=== PATIENT | female | born 1970 | race Caucasian/White ===

== ENCOUNTER 2025-04-02 09:19 | Emergency (ER) | payer OTHER ==
[~2025-04-02] VITALS: Ht 162.6 cm; Wt 82.3 kg
[2025-04-02] MEDS ORDERED: ISOVUE-370 76% 100 ML VIAL As Ordered ONE (09:57)
[2025-04-02] MEDS ORDERED: METO37.5 PO (10:14)
[2025-04-02] MEDS ORDERED: OMEG10002 PO (10:14)
[2025-04-02] MEDS ORDERED: LOSA50TA28 PO (10:14)
[2025-04-02 10:26] LABS: PLATELET COUNT, AUTOMATED 287 10^3/uL (150-450)
[2025-04-02 17:08] VITALS: BP 118/59; TEMP 97.6; O2SAT 96
== END 2025-04-02 17:10 | disposition home or self-care (01) ==
LOC: M ED 09:19 → EDBD 09:19 → M ED 17:10
DX: H81.13 Benign paroxysmal vertigo, bilateral (principal); I10 Essential (primary) hypertension; F10.10 Alcohol abuse, uncomplicated; Z91.048 Other nonmedicinal substance allergy status; Z79.899 Other long term (current) drug therapy
CPT/HCPCS: 36415; 70450; 70496; 70498; 70551; 71045; 80047; 85027; 93005; 99285; Q9967